=== PATIENT | female | born 1945 | race Caucasian/White ===

== ENCOUNTER → 2018-05-11 | Outpatient (CLI) | payer MEDICARE ==
--- NOTE | 2018-05-11 14:41 | XR ---
EXAMINATION TYPE: XR chest 2V DATE OF EXAM: 05/11/2018 COMPARISON: None INDICATION: Cough TECHNIQUE: Frontal and lateral views of the chest are obtained. FINDINGS: The heart size is normal. The pulmonary vasculature is normal. The lungs are clear. There is hyperinflation some flattening the diaphragms and increased AP diamete r. Some emphysematous change could be considered. IMPRESSION: 1. No acute pulmonary process. 2. Consider emphysematous change.
== END | disposition home or self-care (01) ==
LOC: RADXRYALE 13:19
PROVIDERS: ATTEND Internal Medicine
DX: R05 Cough (principal)
CPT/HCPCS: 71046

== ENCOUNTER → 2018-06-20 | Outpatient (CLI) | payer MEDICARE ==
--- NOTE | 2018-06-20 16:16 | XR ---
EXAMINATION TYPE: XR ribs LT w pa chest xray DATE OF EXAM: 06/20/2018 COMPARISON: Chest x-ray 05/11/2018 HISTORY: Left rib pain TECHNIQUE: Two-view left RIBS supplemented with a frontal chest FINDINGS: The heart size is normal. The pulmonary vasculature is normal. No pneumothorax is evident. No displaced rib fractures are identified. IMPRESSION: 1. Normal left ribs
== END ==
LOC: RADXRYALE 11:54
PROVIDERS: ATTEND Internal Medicine
DX: R07.81 Pleurodynia (principal)

== ENCOUNTER → 2018-06-21 | Outpatient (CLI) | payer MEDICARE ==
--- NOTE | 2018-06-21 10:44 | US ---
EXAMINATION TYPE: US abdomen complete DATE OF EXAM: 06/21/2018 COMPARISON: NONE CLINICAL HISTORY: R10.13 epigastric abdominal pain. Epigastric pain, NPO, no previous surgeries EXAM MEASUREMENTS: Liver Length: 14.2 cm Gallbladder Wall: 0.1 cm CBD: 0.7 cm CHD: 1.5 cm Spleen: 8.4 cm Right Kidney: 9.0 x 4.5 x 4.2 cm Left Kidney: 9.0 x 4.7 x 4.8 cm Pancreas: Appears hyperechoic in appearance Liver: Appears hyperechoic and heterogenous Gallbladder: wnl Evidence for sonographic Goins's sign: neg CBD: wnl range for patient age CHD: dilated Spleen: Not well visualized Right Kidney: wnl, lower pole obscured by overlying bowel gas Left Kidney: wnl Upper IVC: wnl Abd Aorta: No AAA visualized The visualized liver is heterogeneously hyperechoic. Evaluation for focal masses is suboptimal due t o the heterogeneity. The intrahepatic portion of the IVC and visualized abdominal aorta are within n ormal limits. There is no evidence of cholelithiasis. Common bile duct is unremarkable. The visual ized portions of the pancreas are slightly heterogeneous without obvious mass. The spleen Is unremark able. Kidneys are symmetric and free of hydronephrosis. No renal lesions are seen. IMPRESSION: Suboptimal study without suspicious finding seen to account for patient's symptoms.Fatty infiltration of liver suspected.
== END ==
LOC: RADUSWWP 08:39
PROVIDERS: ATTEND Internal Medicine
DX: R10.13 Epigastric pain (principal)
CPT/HCPCS: 76700

== ENCOUNTER → 2018-10-31 | Outpatient (CLI) | payer MEDICARE ==
--- NOTE | 2018-10-31 15:59 | XR ---
EXAMINATION TYPE: XR bone survey complete DATE OF EXAM: 10/31/2018 COMPARISON: Chest 06/20/2018 HISTORY: 72-year-old female with lymphadenopathy TECHNIQUE: 16 views. FINDINGS: Chest: Heart upper limits of normal in size. Mild diffuse interstitial prominence appears chronic. Biapical pleural-parenchymal scarring. No consolidation or pleural effusion. Rounded retrocardiac density coul d represent an underlying hiatal hernia. Cervical spine: No predental space widening. Grade 1 anterolisthesis at C4-C5 secondary to facet and uncovertebral josue int arthropathy. Moderate disc/endplate degenerative change mid to lower cervical spine. No lytic les ions seen. Humeri: No endosteal scalloping or punched-out lytic lesion. Calvarium: A couple small 4 mm rounded lucencies posteriorly and inferiorly may represent prominent venous lakes . Otherwise, no punched out lytic lesions or periostitis seen. Pelvis: Mild degenerative change of both hips. No lytic lesions. SI joints appear intact. Thoracic spine: Gentle levoconvex curvature. 12 rib-bearing thoracic vertebral bodies. All pedicles are visualized. M ildly accentuated midthoracic kyphosis with mild multilevel degenerative disc disease. No vertebral c ompression collapse or malalignment. Lumbar spine: 5 lumbar type vertebral bodies. Osteopenia. Facet arthropathy mid to lower lumbar spine. There is a g rade 1 retrolisthesis at L1-L2. Vertebral body heights are preserved. Femurs: No punched out lytic lesion, endosteal scalloping, or periostitis. IMPRESSION: 1. A couple small 4 mm lucencies posteriorly and inferiorly within the calvarium. Suspect prominent v enous lakes. Follow-up as indicated. 2. No other suspicious lytic lucencies are identified.
== END | disposition home or self-care (01) ==
LOC: RADXRMAIN 11:40
PROVIDERS: ATTEND Internal Medicine Hematology & Oncology
DX: D72.820 Lymphocytosis (symptomatic) (principal); R10.10 Upper abdominal pain, unspecified
CPT/HCPCS: 77075

== ENCOUNTER → 2019-10-25 | Outpatient (CLI) | payer MEDICARE | END | disposition home or self-care (01) | CPT/HCPCS: 94060; 94726; 94729 ==

== ENCOUNTER → 2020-09-11 | Outpatient (CLI) | payer MEDICARE | END | disposition home or self-care (01) | LOC: LABWHC1 08:32 | PROVIDERS: ATTEND Internal Medicine | DX: Z20.822 Contact with and (suspected) exposure to COVID-19 (principal); R05 Cough | CPT/HCPCS: U0003; C9803 ==

== ENCOUNTER → 2020-09-27 | Outpatient (CLI) | payer MEDICARE ==
[2020-09-27 14:39] LABS: Basophils # (A) 0.08 X 10*3/uL (0.00-0.10); Basophils % (A) 0.7 %; Eosinophils # (A) 0.22 X 10*3/uL (0.04-0.35); Eosinophils % (A) 1.9 %; HCT 36.4 % (37.2-46.3); HGB 11.4 g/dL (12.0-15.0); Lymphocytes # (A) 2.99 X 10*3/uL (0.90-5.00); Lymphocytes % (A) 25.3 %; MCHC 31.3 g/dL (32.0-37.0); MCV 92.6 fL (80.0-97.0); Mean Platelet Volume 9.7 fL (9.5-12.2); Monocytes # (A) 1.14 X 10*3/uL (0.20-1.00); Monocytes % (A) 9.7 %; Neutrophils # (A) 7.25 X 10*3/uL (1.80-7.70); Neutrophils % (A) 61.4 %; Platelet Count 342 X 10*3/uL (140-440); RBC 3.93 X 10*6/uL (4.10-5.20)
[2020-09-28 07:34] LABS: African American GFR (CKD) 98.9 (60.0-200.0); Albumin 4.4 g/dL (3.80-4.90); Albumin/Globulin Ratio 2.2 (1.60-3.17); Anion Gap 12.6 mmol/L (4.00-12.00); BUN/Creat Ratio 25.71 Ratio (12.00-20.00); Calcium 9.8 mg/dL (8.7-10.3); Carbon Dioxide 22.4 mmol/L (21.6-31.8); Non-African American GFR(CKD) 85.4 (60.0-200.0); Potassium 4.4 mmol/L (3.5-5.5); Total Bilirubin 0.8 mg/dL (0.3-1.2); Total Protein 6.4 g/dL (6.2-8.2)
[2020-09-28 07:35] LABS: Chol/HDL Ratio 2.95; LDL Cholesterol,Calculated 88.2 mg/dL (0.0-131.0); VLDL Calculation 28.8 mg/dL (5.00-40.00)
== END ==
LOC: LABWHC1 08:51
PROVIDERS: ATTEND Internal Medicine
DX: Z00.01 Encounter for general adult medical examination with abnormal findings (principal); I10 Essential (primary) hypertension; E78.00 Pure hypercholesterolemia, unspecified
CPT/HCPCS: 36415; 80053; 80061; 85025

== ENCOUNTER 2023-07-28 11:06 | Day surgery (SDC) | payer MEDICARE ==
[~2023-07-28 11:06] MED LIST: LACTATED RINGERS 1,000 ML IV SCH
[2023-07-28] MEDS: LACTATED RINGERS 1,000 ML IV SCH (12:22)
[2023-07-28] MEDS ORDERED: MIDAZOLAM 2 MG/2 ML VIAL ONE (12:28)
[2023-07-28] MEDS ORDERED: fentaNYL (PF) 50 MCG/ML 2 ML AMP ONE (12:28)
[2023-07-28] MEDS ORDERED: LIDOCAINE 1% INJ 10MG/ML (20 ML MDV) ONE (12:28)
[2023-07-28] MEDS ORDERED: PROPOFOL 10 MG/ML 20 ML VIAL IV ONE (12:28)
[2023-07-28] MEDS: ATROPINE SULFATE 0.4 MG/ML 1 ML VIAL IM ONE (12:28)
[2023-07-28] MEDS ORDERED: KETAMINE HCL IN 0.9 % NACL 50 MG/5 ML SYRINGE ONE (12:28)
[2023-07-28] MEDS: LIDOCAINE 2% INJ 20 MG/ML INTRATRACH ONE (12:39)
[2023-07-28 13:14] VITALS: TEMP 97
[2023-07-28] MEDS: METOPROLOL TARTRATE 5 MG/5 ML VIAL IVP ONE (13:26)
[2023-07-28 13:52] VITALS: RESP 18
[2023-07-28 14:32] VITALS: BP 159/73; PULSE 79
--- NOTE | 2023-07-28 19:44 | PCN ---
PROCEDURE NOTE PROCEDURE: Bronchoscopy, airway examination, therapeutic lavage, bronchoalveolar lavage. PREOPERATIVE DIAGNOSES: Severe chronic obstructive pulmonary disease, chronic bronchitis, chronic cough, and retained secretions. POSTOPERATIVE DIAGNOSES: Severe chronic obstructive pulmonary disease, chronic bronchitis, chronic cough, and retained secretions. LINER ASSEMBLER: Dr. Norris. FIRST DYNAMOTOR REPAIRER: Dr. Stacie Mauro. There was informed consent and universal timeout. ANESTHESIA PROVIDED: General anesthesia. The patient's procedure took place in room #1 [facility]. DESCRIPTION OF PROCEDURE: After the patient was adequately sedated and being fully monitored, the bronchoscope was inserted through the right nostril. It passed through the right nasopharynx into the oropharynx. The hypopharynx was identified. The hypopharyngeal structures including anterior commissure, true cords, false cords, arytenoids, piriform sinuses right and left, vallecula, epiglottis, all appeared normal. The glottic opening was topicalized. The bronchoscope was pushed through the glottic opening into the trachea. The trachea appeared generally normal. There was no mass or tumor. There were some secretions. They were foamy. The tracheal ben was sharp. The right and left mainstem were topicalized. We did a thorough evaluation of both lungs, including the right upper lobe and its 3 segments, the right middle lobe and its 2 segments, the right lower lobe and its 5 segments, left upper lobe proper and its 2 segments, lingula and its 2 segments, and left lower lobe and its 4 segments. There was mild to moderate bronchitis throughout. There were secretions noted throughout. They were suctioned with the aid of saline lavage. There was no dominant mass or tumor. There was some mild mucosal friability. The bronchoscope was then wedged into the right middle lobe. We did a formal BAL. There was no immediate complication. The patient tolerated the procedure well. The patient will be taken over to recovery area. I was able to speak to the patient's . The patient will follow with me in the office. MMODL / IJN: [id number] /
[2023-07-28 21:13] LABS: Appearance,BF Cloudy (Clear); RBC, Body Fluid 5350 /UL (0-2000)
[2023-07-29 09:31] LABS: Nucleated Cells, Body Fluid 65 /UL
== END 2023-07-28 14:23 | disposition home or self-care (01) ==
LOC: ORWHC2ENDO 11:06
PROVIDERS: ATTEND Internal Medicine Critical Care Medicine
DX: J44.1 Chronic obstructive pulmonary disease with (acute) exacerbation (principal); J20.9 Acute bronchitis, unspecified
CPT/HCPCS: 87798 ×3; 87496; 87498; 87529; 88108; 88305; 89050; 87502; 87634; 87070; 87205; 87116; 87102; 87206; 87635; 31624; J2001 ×2; J2250; J0461; J3010; J2704

== ENCOUNTER 2023-09-16 16:54 | Inpatient (IN) | payer MEDICARE ==
[2023-09-16 17:54] LABS: Appearance,Urine Clear (Clear); Bilirubin,Urine Negative (Negative); Blood,Urine Negative (Negative); Color,Urine Colorless; Glucose,Urine (UA) Negative (Negative); Ketones,Urine 1+ (Negative); Leukocyte Esterase,Urine Negative (Negative); Nitrite,Urine Negative (Negative); PH, Urine 5.5 (5.0-8.0); Protein,Urine Negative (Negative); Specific Gravity,Urine 1.013 (1.001-1.035); Urobilinogen,Urine <2.0 mg/dL (<2.0)
[2023-09-16 18:02] LABS: ALT 12 U/L (4-34); AST 18 U/L (14-36); African American GFR (CKD) >90 (>60 ml/min/1.73 sqM); Albumin 3.9 g/dL (3.5-5.0); Alkaline Phosphatase 91 U/L (38-126); Anion Gap 8 mmol/L; Blood Urea Nitrogen 13 mg/dL (7-17); Carbon Dioxide 20 mmol/L (22-30); Chloride 109 mmol/L (98-107); Glucose 126 mg/dL (74-99); Magnesium 1.6 mg/dL (1.6-2.3); Non-African American GFR(CKD) >90 (>60 ml/min/1.73 sqM); Phosphorus 3.1 mg/dL (2.5-4.5); Potassium 4.2 mmol/L (3.5-5.1); Sodium 137 mmol/L (137-145); Total Bilirubin 0.7 mg/dL (0.2-1.3); Total Protein 6.5 g/dL (6.3-8.2)
[2023-09-16 18:03] LABS: Basophils # (A) 0.1 k/uL (0-0.2); Basophils % (A) 0 %; Eosinophils % (A) 0 %; HCT 35.7 % (34.0-46.0); HGB 11.9 gm/dL (11.4-16.0); Lymphocytes # (A) 1.5 k/uL (1.0-4.8); Lymphocytes % (A) 10 %; MCH 29.1 pg (25.0-35.0); MCHC 33.2 g/dL (31.0-37.0); MCV 87.5 fL (80.0-100.0); Mean Platelet Volume 7.5; Monocytes # (A) 0.6 k/uL (0-1.0); Monocytes % (A) 4 %; Neutrophils # (A) 13.7 k/uL (1.3-7.7); Neutrophils % (A) 85 %; Partial Thromboplastin Time 28.3 sec (22.0-30.0); Platelet Count 368 k/uL (150-450); Prothrombin Time 10.9 sec (10.0-12.5); RBC 4.07 m/uL (3.80-5.40); RDW 13.8 % (11.5-15.5); WBC 16.1 k/uL (3.8-10.6)
--- NOTE | 2023-09-16 18:04 | ED ---
Fever HPI - General Chief Complaint: Altered Mental Status Stated Complaint: Weakness Time Seen by Provider: 09/16/23 17:01 Source: patient, RN notes reviewed, old records reviewed Mode of arrival: EMS Limitations: no limitations, altered mental status - History of Present Illness Initial Comments: This is a 77-year-old female to the ER for evaluation. Patient [place] for evaluation of cough congestion fever concern for pneumonia. Patient has been having increasing weakness and was found to be hypoxic with a fever tonight. Family also noticed patient to have increasing or worsening altered mental status MD Complaint: fever, malaise, weakness, other (Mental status) -: days(s) Temperature Source: subjective Context: multiple patients with similar symptoms Associated Symptoms: denies other symptoms Treatments Prior to Arrival: none - Related Data Home Medications Medication Instructions Recorded Confirmed Aspirin 81 mg PO DAILY 07/23/23 09/16/23 Budesonide/Formoterol Fumarate 2 puff INHALATION RT-BID 07/23/23 09/16/23 [Budesonide-Formoterol 160-4.5] Ferrous Sulfate [Feosol] 325 mg PO DAILY 07/23/23 09/16/23 HYDROcodone/APAP 5-325MG [[place] 1 tab PO TID PRN 07/23/23 09/16/23 5-325] Losartan [Cozaar] 100 mg PO DAILY 07/23/23 09/16/23 amLODIPine [Norvasc] 2.5 mg PO DAILY 07/23/23 09/16/23 Metoprolol Tartrate [Lopressor] 25 mg PO DAILY 09/16/23 09/16/23 Omeprazole 20 mg PO DAILY 09/16/23 09/16/23 Allergies Allergy/AdvReac Type Severity Reaction Status Date / Time ciprofloxacin [From Cipro] Allergy Swelling Verified 09/16/23 17:55 levofloxacin Allergy Swelling Verified 09/16/23 17:55 Penicillins Allergy swelling Verified 09/16/23 17:55 of throat Review of Systems ROS Statement: Those systems with pertinent positive or pertinent negative responses have been documented in the HPI. ROS Other: All systems not noted in ROS Statement are negative. Past Medical History Past Medical History: COPD, Hypertension Additional Past Medical History / Comment(s): emphysema, hx anemia, increased SOB, wears 2 liters 02 when needed. increased mucous History of Any Multi-Drug Resistant Organisms: None Reported Past Surgical History: Heart Catheterization With Stent Additional Past Surgical History / Comment(s): colonoscopy Past Anesthesia/Blood Transfusion Reactions: No Reported Reaction Date of Last Stent Placement:: 2005 Past Psychological History: No Psychological Hx Reported Smoking Status: Former smoker Past Alcohol Use History: None Reported Past Drug Use History: None Reported - Past Family History Father Family Medical History: Cancer Mother Family Medical History: Hypertension General Exam Limitations: altered mental status General appearance: anxious, in distress Head exam: Present: atraumatic, normocephalic, normal inspection Eye exam: Present: normal appearance, PERRL, EOMI. Absent: scleral icterus, conjunctival injection, periorbital swelling ENT exam: Present: normal exam, mucous membranes moist Neck exam: Present: normal inspection. Absent: tenderness, meningismus, lymphadenopathy Respiratory exam: Present: normal lung sounds bilaterally. Absent: respiratory distress, wheezes, rales, rhonchi, stridor Cardiovascular Exam: Present: regular rate, normal rhythm, normal heart sounds. Absent: systolic murmur, diastolic murmur, rubs, gallop, clicks GI/Abdominal exam: Present: soft, normal bowel sounds. Absent: distended, tenderness, guarding, rebound, rigid Extremities exam: Present: normal inspection, full ROM, normal capillary refill. Absent: tenderness, pedal edema, joint swelling, calf tenderness Back exam: Present: normal inspection Neurological exam: Present: alert, oriented X3, CN II-XII intact Psychiatric exam: Present: normal affect, normal mood Skin exam: Present: warm, dry, intact, normal color. Absent: rash Course Vital Signs 09/16/23 09/16/23 09/16/23 17:07 17:50 19:11 Temperature 99.8 F H 99.6 F 99.1 F Pulse Rate 107 H 105 H 96 Pulse Rate [ Field Scout ] Respiratory 20 16 16 Rate Blood Pressure 152/72 142/58 Blood Pressure [Right Arm] O2 Sat by Pulse 87 L 97 96 Oximetry 09/16/23 09/17/23 09/17/23 21:00 06:00 07:45 Temperature 98.8 F 98.9 F 99.0 F Pulse Rate 85 80 Pulse Rate [ Field Scout ] Respiratory 20 17 Rate Blood Pressure 147/65 152/67 Blood Pressure [Right Arm] O2 Sat by Pulse 95 99 98 Oximetry 09/17/23 09/17/23 09/17/23 08:24 09:02 10:20 Temperature 99.0 F Pulse Rate 77 83 Pulse Rate [ Field Scout ] Respiratory 18 17 Rate Blood Pressure 140/60 123/45 Blood Pressure [Right Arm] O2 Sat by Pulse 98 99 98 Oximetry 09/17/23 09/17/23 09/17/23 12:25 13:04 17:44 Temperature 98.3 F Pulse Rate 96 Pulse Rate [ 89 80 Field Scout ] Respiratory 14 18 18 Rate Blood Pressure 149/73 Blood Pressure 124/57 124/64 [Right Arm] O2 Sat by Pulse 95 96 96 Oximetry 09/17/23 09/17/23 18:29 19:52 Temperature 98.9 F 97.8 F Pulse Rate 80 Pulse Rate [ Field Scout ] Respiratory 18 Rate Blood Pressure 127/51 Blood Pressure [Right Arm] O2 Sat by Pulse 93 L Oximetry - Reevaluation(s) Reevaluation #1: 09/16/23 21:34 Medical records reviewed Reevaluation #2: 09/16/23 21:34 Patient symptoms improving Reevaluation #3: 09/16/23 21:34 Patient informed of results questions answered Reevaluation #4: Was pt. sent in by a medical professional or institution (, PA, SERVICE ENGINE REPAIRER, urgent care, hospital, or correction...) When possible be specific @ -no Did you speak to anyone other than the patient for history (EMS, parent, family, police, friend...)? What history was obtained from this source @ -no Did you review nursing and triage notes (agree or disagree)? Why? @ -agree Are old charts reviewed (outside hosp., previous admission, EMS record, old EKG, old radiological studies, urgent care reports/EKG's, correction records)? Report findings @ -yes Differential Diagnosis (chest pain, altered mental status, abdominal pain women, abdominal pain men, vaginal bleeding, weakness, fever, dyspnea, syncope, headache, dizziness, GI bleed, back pain, seizure, CVA, palpatations, mental health, musculoskeletal)? @ -prior EKG interpreted by me (3pts min.). @ -yes X-rays interpreted by me (1pt min.). @ -yes positive for pneumonia CT interpreted by me (1pt min.). @ -no U/S interpreted by me (1pt. min.). @ -no What testing was considered but not performed or refused? (CT, X-rays, U/S, labs)? Why? @ -none What meds were considered but not given or refused? Why? @ -none Did you discuss the management of the patient with other professionals (professionals i.e. , PA, SERVICE ENGINE REPAIRER, lab, RT, psych nurse, oncology social worker, pigskin trimmer, teacher, information technology officer, caseworker)? Give summary @ -no Was smoking cessation discussed for >3mins.? @ -no Was critical care preformed (if so, how long)? @ -[id number] Were there social determinants of health that impacted care today? How? (Homelessness, low income, unemployed, alcoholism, drug addiction, transportation, low edu. Level, literacy, decrease access to med. care, fpc, rehab)? @ -none Was there de-escalation of care discussed even if they declined (Discuss DNR or withdrawal of care, Hospice)? DNR status @ -no What co-morbidities impacted this encounter? (DM, HTN, Smoking, COPD, CAD, Cancer, CVA, ARF, Chemo, Hep., AIDS, mental health diagnosis, sleep apnea, morbid obesity)? @ -none Was patient admitted / discharged? Hospital course, mention meds given and route, prescriptions, significant lab abnormalities, going to OR and other pertinent info. @ - 77 female to ER for evaluation of fever with pneumonia. Patient will be a dmitted for IV antibiotics fever control Admitted Undiagnosed new problem with uncertain prognosis? @ -no Drug Therapy requiring intensive monitoring for toxicity (Heparin, Nitro, Insulin, Cardizem)? @ -no Were any procedures done? @ -no Diagnosis/symptom? @ -Pneumonia fever hypoxia Acute, or Chronic, or Acute on Chronic? @ -Acute Uncomplicated (without systemic symptoms) or Complicated (systemic symptoms)? @ -Complicated Side effects of treatment? @ -no Exacerbation, Progression, or Severe Exacerbation? @ -exacerbation Poses a threat to life or bodily function? How? (Chest pain, USA, NM, pneumonia, PE, COPD, DKA, ARF, appy, cholecystitis, CVA, Diverticulitis, Homicidal, Suicidal, threat to staff... and all critical care pts) @ -yes with extremes of age 0509/18/23 23:03 Reevaluation #5: Differential Fever: Pneumonia, viral URI, endocarditis, myocarditis, pericarditis, otitis, sinusitis, peritonsillar Abscess, retropharyngeal Abscess, epiglottitis, per itonitis, appendicitis, Grace cystitis, diverticulitis, hepatitis, colitis, UTI, PID, TOA, pyelonephritis, prostatitis, epididymitis, meningitis, encephalitis, pulmonary embolism, CVA, thyroid storm, pancreatitis, adrenal crisis, cavernous sinus thrombosis, this is not meant to be an all-inclusive list. Differential Dyspnea: Coronary syndrome, arrhythmia, tamponade, asthma, COPD, pulmonary embolism, pneumonia, pneumothorax, pulmonary effusion, anaphylaxis, diabetic ketoacidosis, flailed chest, pulmonary contusion, diaphragmatic rupture, anemia, neuromuscular, this is not meant to be an all-inclusive list. Medical Decision Making - Medical Decision Making 77 female to ER for evaluation of fever with pneumonia. Patient will be admitt ed for IV antibiotics fever control - Lab Data Result diagrams: 09/18/23 12:57 09/18/23 12:57 Lab Results 09/16/23 09/16/23 09/16/23 Range/Units 17:20 17:40 17:40 WBC 16.1 H (3.8-10.6) k/uL RBC 4.07 (3.80-5.40) m/uL Hgb 11.9 (11.4-16.0) gm/dL Hct 35.7 (34.0-46.0) % MCV 87.5 (80.0-100.0) fL MCH 29.1 (25.0-35.0) pg MCHC 33.2 (31.0-37.0) g/dL RDW 13.8 (11.5-15.5) % Plt Count 368 (150-450) k/uL MPV 7.5 Neutrophils % 85 % Lymphocytes % 10 % Monocytes % 4 % Eosinophils % 0 % Basophils % 0 % Neutrophils # 13.7 H (1.3-7.7) k/uL Lymphocytes # 1.5 (1.0-4.8) k/uL Monocytes # 0.6 (0-1.0) k/uL Eosinophils # 0.0 (0-0.7) k/uL Basophils # 0.1 (0-0.2) k/uL PT 10.9 (10.0-12.5) sec INR 1.0 (<1.2) APTT 28.3 (22.0-30.0) sec Sodium (137-145) mmol/L Potassium (3.5-5.1) mmol/L Chloride (98-107) mmol/L Carbon Dioxide (22-30) mmol/L Anion Gap mmol/L BUN (7-17) mg/dL Creatinine (0.52-1.04) mg/dL Est GFR (CKD-EPI)AfAm (>60 ml/min/1.73 sqM) Est GFR (CKD-EPI)NonAf (>60 ml/min/1.73 sqM) Glucose (74-99) mg/dL Plasma Lactic Acid Amor (0.7-2.0) mmol/L Calcium (8.4-10.2) mg/dL Phosphorus (2.5-4.5) mg/dL Magnesium (1.6-2.3) mg/dL Total Bilirubin (0.2-1.3) mg/dL AST (14-36) U/L ALT (4-34) U/L Alkaline Phosphatase (38-126) U/L Troponin I (0.000-0.034) ng/mL NT-Pro-B Natriuret Pep pg/mL Total Protein (6.3-8.2) g/dL Albumin (3.5-5.0) g/dL Procalcitonin 0.10 H (0.02-0.09) ng/mL Urine Color Urine Appearance (Clear) Urine pH (5.0-8.0) Ur Specific [place] (1.001-1.035) Urine Protein (Negative) Urine Glucose (UA) (Negative) Urine Ketones (Negative) Urine Blood (Negative) Urine Nitrite (Negative) Urine Bilirubin (Negative) Urine Urobilinogen (<2.0) mg/dL Ur Leukocyte Esterase (Negative) Influenza Type A (PCR) (Not Detectd) Influenza Type B (PCR) (Not Detectd) Urine Legionella Ag (Negative) RSV (PCR) (Not Detectd) SARS-CoV-2 (PCR) (Not Detectd) 09/16/23 09/16/23 09/16/23 Range/Units 17:40 17:40 17:40 WBC (3.8-10.6) k/uL RBC (3.80-5.40) m/uL Hgb (11.4-16.0) gm/dL Hct (34.0-46.0) % MCV (80.0-100.0) fL MCH (25.0-35.0) pg MCHC (31.0-37.0) g/dL RDW (11.5-15.5) % Plt Count (150-450) k/uL MPV Neutrophils % % Lymphocytes % % Monocytes % % Eosinophils % % Basophils % % Neutrophils # (1.3-7.7) k/uL Lymphocytes # (1.0-4.8) k/uL Monocytes # (0-1.0) k/uL Eosinophils # (0-0.7) k/uL Basophils # (0-0.2) k/uL PT (10.0-12.5) sec INR (<1.2) APTT (22.0-30.0) sec Sodium 137 (137-145) mmol/L Potassium 4.2 (3.5-5.1) mmol/L Chloride 109 H (98-107) mmol/L Carbon Dioxide 20 L (22-30) mmol/L Anion Gap 8 mmol/L BUN 13 (7-17) mg/dL Creatinine 0.54 (0.52-1.04) mg/dL Est GFR (CKD-EPI)AfAm >90 (>60 ml/min/1.73 sqM) Est GFR (CKD-EPI)NonAf >90 (>60 ml/min/1.73 sqM) Glucose 126 H (74-99) mg/dL Plasma Lactic Acid Amor 0.8 (0.7-2.0) mmol/L Calcium 9.0 (8.4-10.2) mg/dL Phosphorus 3.1 (2.5-4.5) mg/dL Magnesium 1.6 (1.6-2.3) mg/dL Total Bilirubin 0.7 (0.2-1.3) mg/dL AST 18 (14-36) U/L ALT 12 (4-34) U/L Alkaline Phosphatase 91 (38-126) U/L Troponin I (0.000-0.034) ng/mL NT-Pro-B Natriuret Pep 567 pg/mL Total Protein 6.5 (6.3-8.2) g/dL Albumin 3.9 (3.5-5.0) g/dL Procalcitonin (0.02-0.09) ng/mL Urine Color Colorless Urine Appearance Clear (Clear) Urine pH 5.5 (5.0-8.0) Ur Specific [place] 1.013 (1.001-1.035) Urine Protein Negative (Negative) Urine Glucose (UA) Negative (Negative) Urine Ketones 1+ H (Negative) Urine Blood Negative (Negative) Urine Nitrite Negative (Negative) Urine Bilirubin Negative (Negative) Urine Urobilinogen <2.0 (<2.0) mg/dL Ur Leukocyte Esterase Negative (Negative) Influenza Type A (PCR) (Not Detectd) Influenza Type B (PCR) (Not Detectd) Urine Legionella Ag (Negative) RSV (PCR) (Not Detectd) SARS-CoV-2 (PCR) (Not Detectd) 09/16/23 09/16/23 09/16/23 Range/Units 17:40 17:40 18:36 WBC (3.8-10.6) k/uL RBC (3.80-5.40) m/uL Hgb (11.4-16.0) gm/dL Hct (34.0-46.0) % MCV (80.0-100.0) fL MCH (25.0-35.0) pg MCHC (31.0-37.0) g/dL RDW (11.5-15.5) % Plt Count (150-450) k/uL MPV Neutrophils % % Lymphocytes % % Monocytes % % Eosinophils % % Basophils % % Neutrophils # (1.3-7.7) k/uL Lymphocytes # (1.0-4.8) k/uL Monocytes # (0-1.0) k/uL Eosinophils # (0-0.7) k/uL Basophils # (0-0.2) k/uL PT (10.0-12.5) sec INR (<1.2) APTT (22.0-30.0) sec Sodium (137-145) mmol/L Potassium (3.5-5.1) mmol/L Chloride (98-107) mmol/L Carbon Dioxide (22-30) mmol/L Anion Gap mmol/L BUN (7-17) mg/dL Creatinine (0.52-1.04) mg/dL Est GFR (CKD-EPI)AfAm (>60 ml/min/1.73 sqM) Est GFR (CKD-EPI)NonAf (>60 ml/min/1.73 sqM) Glucose (74-99) mg/dL Plasma Lactic Acid Amor (0.7-2.0) mmol/L Calcium (8.4-10.2) mg/dL Phosphorus (2.5-4.5) mg/dL Magnesium (1.6-2.3) mg/dL Total Bilirubin (0.2-1.3) mg/dL AST (14-36) U/L ALT (4-34) U/L Alkaline Phosphatase (38-126) U/L Troponin I <0.012 (0.000-0.034) ng/mL NT-Pro-B Natriuret Pep pg/mL Total Protein (6.3-8.2) g/dL Albumin (3.5-5.0) g/dL Procalcitonin (0.02-0.09) ng/mL Urine Color Urine Appearance (Clear) Urine pH (5.0-8.0) Ur Specific [place] (1.001-1.035) Urine Protein (Negative) Urine Glucose (UA) (Negative) Urine Ketones (Negative) Urine Blood (Negative) Urine Nitrite (Negative) Urine Bilirubin (Negative) Urine Urobilinogen (<2.0) mg/dL Ur Leukocyte Esterase (Negative) Influenza Type A (PCR) Not Detected (Not Detectd) Influenza Type B (PCR) Not Detected (Not Detectd) Urine Legionella Ag Negative (Negative) RSV (PCR) Not Detected (Not Detectd) SARS-CoV-2 (PCR) Not Detected (Not Detectd) - EKG Data -: EKG Interpreted by Me (EKG is sinus tachycardia 104 WA 160 QRS 90 QTc 406) - Radiology Data Radiology results: report reviewed (Chest x-ray is positive for pneumonia), image reviewed Critical Care Time Critical Care Time: Yes Total Critical Care Time: 31 Disposition Clinical Impression: Altered mental status, Fever, Hypoxia, Pneumonia allergic, Pneumonia Disposition: ADMITTED IP TO THIS HOSP Condition: Fair Is patient prescribed a controlled substance at d/c from ED?: No Time of Disposition: 20:45
[2023-09-16 18:10] LABS: NT-Pro-B-Type Natriuretic Pept 567 pg/mL
[2023-09-16] MEDS: SODIUM CHLORIDE 0.9% 1,000 ML IV STA (18:16)
--- NOTE | 2023-09-16 19:02 | XR ---
EXAMINATION TYPE: XR chest 2V DATE OF EXAM: 09/16/2023 6:44 PM CLINICAL INDICATION:Female, 77 years old with history of cough; [facility] COMPARISON: Chest radiographs from 07/21/2023 TECHNIQUE: XR chest 2V Frontal and lateral views of the chest. FINDINGS: Lungs/Pleura: Hazy bibasilar airspace opacities, slightly progressed from the prior study. No pleural effusion or pneumothorax. Pulmonary vascularity: Unremarkable. Heart/mediastinum: Cardiomediastinal silhouette is unremarkable. Atherosclerotic calcifications are seen in the aorta. Musculoskeletal: No acute osseous pathology. IMPRESSION: Bibasilar airspace disease, may represent developing infectious/inflammatory process.
[2023-09-16] MEDS ORDERED: IPRATROPIUM-ALBUTEROL 3 ML NEB INHALATION PRN ×2 (20:40)
[2023-09-16] MEDS ORDERED: PNEUMONIA PROTOCOL UTILIZED 1 EACH MISC PO PRN (20:40)
[2023-09-16] MEDS: AZITHROMYCIN 500 MG in SODIUM CHLORIDE 0.9% 250 ML IVPB STA ×2 (21:56→22:40)
[2023-09-16] MEDS: SODIUM CHLORIDE 0.9% 1,000 ML IV SCH (22:06)
--- NOTE | 2023-09-17 02:48 | P.CNPUL ---
History of Present Illness Consult date: 09/17/23 Requesting physician: Marquise Jewell Reason for consult: COPD, pneumonia Chief complaint: Shortness of breath, weakness, lethargy History of present illness: Patient is a 77-year-old white female with past medical history significant for severe chronic obstructive pulmonary disease, chronic supplemental oxygen on 2 L nasal cannula, hypertension, and former tobacco dependence. Her primary care provider is Dr. Tripp. Patient does follow in the pulmonary office with Dr. Norris. She has history of severe COPD with an FEV1 45% of predicted, most recent PFT shows an improvement in her FEV1 59%. She no longer smokes cigarettes, but has a significant smoking history. In June, she was having issues with her COPD in exacerbation. Recently had a bronchoscopy with BAL done on 07/28/2023. Cultures did not show any bacteria growing. Only isolated Magdalena albicans and glabrata. PCR positive for CMV. States that she was doing well following her bronchoscopy. Patient brought in by EMS yesterday evening. Over the last several days she has noted to be increasingly lethargic and co nfused by her family. She is currently alert and oriented and answering my questions. She admits to being fatigued and sleeping a lot. She has had a productive cough with green/yellow sputum. Denies hemoptysis. She has been having low-grade fevers at home. Highest recorded temperature on arrival to the emergency room was 99.8 F. She denies any gastrointestinal symptoms such as nausea, vomiting, or diarrhea. No abdominal pain. No known sick contacts or travel. She denies any chest pain, lower extremity swelling, lightheadedness/syncope, heart palpitations. EKG on arrival shows sinus tachycardia without any obvious acute ischemic changes. Chest x-ray shows mild hazy bibasilar airspace opacities, could represent developing infectious/inflammatory process. Was covered on empiric antibiotics in the emergency room. CBC on arrival shows some leukocytosis with a WBC count of 16.1, otherwise unremarkable. BMP unremarkable. Normal saline infusing at 100 MLS per hour. Troponin less than 0.012. NT proBNP 567. Urinalysis not remarkable for UTI. Negative for influenza, RSV, COVID. Appears nontoxic. She is currently on 2 L/min nasal cannula, in no acute distress. She is chronically on this flow rate. Vital signs are stable. Review of Systems REVIEW OF SYSTEMS: CONSTITUTIONAL: Denies any recent significant weight loss or weight gain. Admits generalized malaise and fatigue. Also intermittent low-grade fevers. EYES: Denies change in vision. EARS, NOSE, MOUTH, THROAT: Denies headaches, denies sore throat. CARDIOVASCULAR: Denies chest pain, palpitations or syncopal episodes. RESPIRATORY: See HPI. GASTROINTESTINAL: Denies abdominal pain, nausea and vomiting, or diarrhea. Admits reduced appetite. GENITOURINARY: Denies hematuria, denies infections. MUSKULOSKELETAL: Admits generalized muscle aches INTEGUMENTARY: Denies rash, denies eczema. NEUROLOGICAL: Denies recent memory loss, no recent seizure activity. PSYCHIATRIC: Denies anxiety, denies depression. HEMATOLOGIC/LYMPHATIC: Denies anemia, denies enlarged lymph node Past Medical History Past Medical History: COPD, Hypertension Additional Past Medical History / Comment(s): emphysema, hx anemia, increased SOB, wears 2 liters 02 when needed. increased mucous History of Any Multi-Drug Resistant Organisms: None Reported Past Surgical History: Heart Catheterization With Stent Additional Past Surgical History / Comment(s): colonoscopy Past Anesthesia/Blood Transfusion Reactions: No Reported Reaction Date of Last Stent Placement:: 2005 Past Psychological History: No Psychological Hx Reported Smoking Status: Former smoker Past Alcohol Use History: None Reported Past Drug Use History: None Reported - Past Family History Father Family Medical History: Cancer Mother Family Medical History: Hypertension Medications and Allergies Home Medications Medication Instructions Recorded Confirmed Type Aspirin 81 mg PO DAILY 07/23/23 09/16/23 History Budesonide/Formoterol Fumarate 2 puff INHALATION RT-BID 07/23/23 09/16/23 History [Budesonide-Formoterol 160-4.5] Ferrous Sulfate [Feosol] 325 mg PO DAILY 07/23/23 09/16/23 History HYDROcodone/APAP 5-325MG [[place] 1 tab PO TID PRN 07/23/23 09/16/23 History 5-325] Losartan [Cozaar] 100 mg PO DAILY 07/23/23 09/16/23 History amLODIPine [Norvasc] 2.5 mg PO DAILY 07/23/23 09/16/23 History Metoprolol Tartrate [Lopressor] 25 mg PO DAILY 09/16/23 09/16/23 History Omeprazole 20 mg PO DAILY 09/16/23 09/16/23 History Allergies Allergy/AdvReac Type Severity Reaction Status Date / Time ciprofloxacin [From Cipro] Allergy Swelling Verified 09/16/23 17:55 levofloxacin Allergy Swelling Verified 09/16/23 17:55 Penicillins Allergy swelling Verified 09/16/23 17:55 of throat Physical Exam Vitals: Vital Signs Temp Pulse Resp BP Pulse Ox 09/16/23 21:00 98.8 F 95 09/16/23 19:11 99.1 F 96 16 142/58 96 09/16/23 17:50 99.6 F 105 H 16 97 09/16/23 17:07 99.8 F H 107 H 20 152/72 87 L Intake and Output 09/16/23 09/16/23 09/17/23 14:59 22:59 06:59 Other: Weight 72.575 kg GENERAL EXAM: Alert, 77-year-old white female, on 2 L/min nasal cannula. Comfortable in no apparent distress. [facility] HEAD: Normocephalic and atraumatic EYES: Normal reaction of pupils, equal size. NOSE: Clear with pink turbinates. THROAT: No erythema or exudates. NECK: No masses, no JVD. CHEST: No chest wall deformity. LUNGS: Equal air entry with no crackles, wheeze, rhonchi or dullness. On 2 L/ min nasal cannula. No conversational dyspnea or accessory muscle use while at rest CVS: S1 and S2 normal with no audible murmur, regular rhythm. No extra heart sounds ABDOMEN: No hepatosplenomegaly, active bowel sounds, no guarding or rigidity. SPINE: No scoliosis or deformity SKIN: No rashes. Generalized pallor. CENTRAL NERVOUS SYSTEM: No focal deficits, tone is normal in all 4 extremities. EXTREMITIES: There is no peripheral edema, clubbing, or cyanosis. Peripheral pulses are intact. Results - Laboratory Findings CBC and BMP: 09/16/23 17:40 09/16/23 17:40 PT/INR, D-dimer PT 10.9 sec (10.0-12.5) 09/16/23 17:40 INR 1.0 (<1.2) 09/16/23 17:40 Abnormal lab findings: Abnormal Labs 09/16/23 09/16/23 09/16/23 17:40 17:40 17:40 WBC 16.1 H Neutrophils # 13.7 H Chloride 109 H Carbon Dioxide 20 L Glucose 126 H Urine Ketones 1+ H - Diagnostic Findings Chest x-ray: image reviewed Assessment and Plan Assessment: Suspect acute COPD exacerbation, possible developing bibasilar pneumonia, community-acquired. Chest x-ray shows mild hazy bibasilar opacities, could represent developing infectious/inflammatory process. Negative for influenza, RSV, COVID. Acute on chronic dyspnea, secondary to above Acute febrile illness Acute leukocytosis History of severe chronic obstructive pulmonary disease Chronic hypoxemic respiratory failure, secondary to above History of recent bronchoscopy with BAL done 07/28/2023, BAL cultures did not show any bacteria growing. Only isolated Magdalena albicans and glabrata. PCR positive for CMV. She was given fluconazole to be completed outpatient. States that she was doing well following her bronchoscopy. Hypertension History of former tobacco dependence Plan: Patient's medications, labs, chest x-ray reviewed Patient being admitted with IV antibiotics Follow-up chest x-ray in the morning Currently on chronic 2 L/min nasal cannula Start patient on a combination of bronchodilators, Symbicort Hailer, and IV Solu-Medrol 4Plex negative for influenza, RSV, COVID Obtain sputum culture if possible. Blood cultures pending. Procalcitonin pending. No signs of CO2 narcosis. Will continue to follow I have personally seen and examined the patient, performed the documentation and the assessment and plan as written. Number of minutes spent on the visit:20 This is a joint evaluation that was done along with the nurse practitioner. The patient is seen and evaluated. The patient is currently being admitted for an acute Exacerbation. Reviewed the chest x-ray from the time of admission and the follow-up chest x-ray that was done today. Findings are essentially chronic co nsistent with COPD. No airspace disease or consolidations evident at this point in time. There may be a small hiatal hernia. The patient's white cell count is 16, electrolytes are stable and the patient serum bicarb is at 20. LFTs are normal. Procalcitonin level is at 0.1. The viral screen was negative. Legionella urine antigen was negative. The patient is on DuoNeb nebulized treatments [id number], Symbicort, IV Solu-Medrol and rest of the home medications have been resumed. The patient is currently on 2 L of oxygen by nasal cannula with a pulse ox of 96%. She has been followed up with us in the office regarding her COPD. Baseline 1 is 45% of predicted consistent with severe COPD and the patient had some reversibility post bronchodilation where FEV1 came up to 59% post bronchodilation. She is an ex-smoker. Time with Patient: Greater than 30
[2023-09-17] MEDS: methylPREDNISolone SOD SUCCI 40 MG/ML 1 ML VIAL IV SCH (08:20)
[2023-09-17] MEDS: SYMBICORT 160-4.5 MCG INHALER INHALATION SCH ×2 (08:23→20:02)
[2023-09-17] MEDS: AZITHROMYCIN 500 MG in SODIUM CHLORIDE 0.9% 250 ML IVPB SCH (09:01)
[2023-09-17] MEDS: HYDROcodone/APAP 5-325MG 1 EACH TAB PO PRN (09:04)
--- NOTE | 2023-09-17 12:25 | XR ---
EXAMINATION TYPE: XR chest 1V portable DATE OF EXAM: 09/17/2023 COMPARISON: 09/16/2023 INDICATION: Pneumonia TECHNIQUE: Single frontal view of the chest is obtained. FINDINGS: The heart size is normal. The pulmonary vasculature is normal. The lungs are clear. There may be a small hiatal hernia present. IMPRESSION: 1. No acute pulmonary process. 2. There may be a small hiatal hernia present.
[2023-09-18] MEDS: PANTOPRAZOLE 40 MG TABLET PO SCH (06:47)
[2023-09-18] MEDS: METOPROLOL TARTRATE 25 MG TAB PO SCH (09:30)
[2023-09-18] MEDS: ASPIRIN 81 MG PO SCH (09:30)
[2023-09-18] MEDS: FERROUS SULFATE 325 MG TAB PO SCH (09:30)
[2023-09-18] MEDS: amLODIPine 2.5 MG TAB PO SCH (09:30)
[2023-09-18] MEDS: LOSARTAN 50 MG TAB PO SCH (09:30)
--- NOTE | 2023-09-18 12:21 | P.HPIM ---
History of Present Illness H&P Date: 09/17/23 Chief Complaint: Weakness/altered mental status 77-year-old female to the ER for evaluation. Patient midstate for evaluation of cough congestion fever concern for pneumonia. Patient has been having increasing weakness and was found to be hypoxic with a fever tonight. Family also noticed patient to have increasing or worsening altered mental status. She is currently alert and oriented and answering my questions. She admits to being fatigued and sleeping a lot. She has had a productive cough with green/yellow sputum. Denies hemoptysis. She has been having low-grade fevers at home. Highest recorded temperature on arrival to the emergency room was 99.8 F. She denies any gastrointestinal symptoms such as nausea, vomiting, or diarrhea. No abdominal pain. No known sick contacts or travel. She denies any chest pain, lower extremity swelling, lightheadedness/syncope, heart palpitations. EKG on arrival shows sinus tachycardia without any obvious acute ischemic changes. Recently had a bronchoscopy with BAL done on 07/28/2023. Cultures did not show any bacteria growing. Only isolated Magdalena albicans and glabrata. PCR positive for CMV. Patient brought in by EMS yesterday evening. Over the last several days she has noted to be increasingly lethargic and confused by her family. -- Chest x-ray shows mild hazy bibasilar airspace opacities, could represent developing infectious/inflammatory process. CBC on arrival shows some leukocytosis with a WBC count of 16.1, otherwise unremarkable. BMP unremarkable. Normal saline infusing at 100 MLS per hour. Troponin less than 0.012. NT proBNP 567. Urinalysis not remarkable for UTI. Negative for influenza, RSV, COVID. Review of Systems REVIEW OF SYSTEMS: CONSTITUTIONAL: No fever, no malaise, no fatigue. HEENT: No recent visual problems or hearing problems. Denied any sore throat. CARDIOVASCULAR: No chest pain, orthopnea, PND, no palpitations, no syncope. PULMONARY: No shortness of breath, no cough, no hemoptysis. GASTROINTESTINAL: No diarrhea, no nausea, no vomiting, no abdominal pain. NEUROLOGICAL: No headaches, no weakness, no numbness. HEMATOLOGICAL: Denies any bleeding or petechiae. GENITOURINARY: Denies any burning micturition, frequency, or urgency. MUSCULOSKELETAL/RHEUMATOLOGICAL: Denies any joint pain, swelling, or any muscle pain. ENDOCRINE: Denies any polyuria or polydipsia. The rest of the 14-point review of systems is negative. Past Medical History Past Medical History: COPD, Hypertension Additional Past Medical History / Comment(s): emphysema, hx anemia, increased SOB, wears 2 liters 02 when needed. increased mucous History of Any Multi-Drug Resistant Organisms: None Reported Past Surgical History: Heart Catheterization With Stent Additional Past Surgical History / Comment(s): colonoscopy Past Anesthesia/Blood Transfusion Reactions: No Reported Reaction Date of Last Stent Placement:: 2005 Past Psychological History: No Psychological Hx Reported Smoking Status: Former smoker Past Alcohol Use History: None Reported Past Drug Use History: None Reported - Past Family History Father Family Medical History: Cancer Mother Family Medical History: Hypertension Medications and Allergies Home Medications Medication Instructions Recorded Confirmed Type Aspirin 81 mg PO DAILY 07/23/23 09/16/23 History Budesonide/Formoterol Fumarate 2 puff INHALATION RT-BID 07/23/23 09/16/23 History [Budesonide-Formoterol 160-4.5] Ferrous Sulfate [Feosol] 325 mg PO DAILY 07/23/23 09/16/23 History HYDROcodone/APAP 5-325MG [[place] 1 tab PO TID PRN 07/23/23 09/16/23 History 5-325] Losartan [Cozaar] 100 mg PO DAILY 07/23/23 09/16/23 History amLODIPine [Norvasc] 2.5 mg PO DAILY 07/23/23 09/16/23 History Metoprolol Tartrate [Lopressor] 25 mg PO DAILY 09/16/23 09/16/23 History Omeprazole 20 mg PO DAILY 09/16/23 09/16/23 History Allergies Allergy/AdvReac Type Severity Reaction Status Date / Time ciprofloxacin [From Cipro] Allergy Swelling Verified 09/16/23 17:55 levofloxacin Allergy Swelling Verified 09/16/23 17:55 Penicillins Allergy swelling Verified 09/16/23 17:55 of throat Physical Exam Vitals: Vital Signs Temp Pulse Pulse Resp BP BP Pulse Ox 09/17/23 13:04 89 18 124/57 96 09/17/23 12:25 98.3 F 96 14 149/73 95 09/17/23 10:20 83 17 123/45 98 09/17/23 09:02 99.0 F 77 18 140/60 99 09/17/23 08:24 98 09/17/23 07:45 99.0 F 80 17 152/67 98 09/17/23 06:00 98.9 F 85 20 147/65 99 09/16/23 21:00 98.8 F 95 09/16/23 19:11 99.1 F 96 16 142/58 96 09/16/23 17:50 99.6 F 105 H 16 97 09/16/23 17:07 99.8 F H 107 H 20 152/72 87 L Intake and Output 09/16/23 09/17/23 09/17/23 22:59 06:59 14:59 Other: Weight 72.575 kg GENERAL EXAM: Alert, on 2 L/min nasal cannula. Comfortable in no apparent distress. HEAD: Normocephalic and atraumatic EYES: Normal reaction of pupils, equal size. NECK: No masses, no JVD. CHEST: No chest wall deformity. LUNGS: Equal air entry with no crackles, wheeze, rhonchi or dullness. On 2 L/min nasal cannula. No conversational dyspnea or accessory muscle use while at rest CVS: S1 and S2 normal with no audible murmur, regular rhythm. No extra heart sounds ABDOMEN: No hepatosplenomegaly, active bowel sounds, no guarding or rigidity. SKIN: No rashes. Generalized pallor. CENTRAL NERVOUS SYSTEM: No focal deficits, tone is normal in all 4 extremities. EXTREMITIES: There is no peripheral edema, clubbing, or cyanosis. Peripheral pulses are intact. Results CBC & Chem 7: 09/16/23 17:40 09/16/23 17:40 Labs: Abnormal Lab Results - Last 24 Hours (Table) 09/16/23 09/16/23 09/16/23 Range/Units 17:20 17:40 17:40 WBC 16.1 H (3.8-10.6) k/uL Neutrophils # 13.7 H (1.3-7.7) k/uL Chloride (98-107) mmol/L Carbon Dioxide (22-30) mmol/L Glucose (74-99) mg/dL Procalcitonin 0.10 H (0.02-0.09) ng/mL Urine Ketones 1+ H (Negative) 09/16/23 Range/Units 17:40 WBC (3.8-10.6) k/uL Neutrophils # (1.3-7.7) k/uL Chloride 109 H (98-107) mmol/L Carbon Dioxide 20 L (22-30) mmol/L Glucose 126 H (74-99) mg/dL Procalcitonin (0.02-0.09) ng/mL Urine Ketones (Negative) Assessment and Plan Assessment: 1. Acute exacerbation COPD -Patient has been placed on IV steroids in form of Solu-Medrol 40 mg IV every 6 hours; DuoNeb nebulizer treatments 4 times daily and as needed; continue with O2 per nasal cannula with plans to wean or titrate keeping saturation above 90% 2. Bibasilar pneumonia/CAP History of recent bronchoscopy with BAL done 07/28/2023, BAL cultures did not show any bacteria growing. Only isolated Magdalena albicans and glabrata. PCR positive for CMV. She was given fluconazole to be completed outpatient. States that she was doing well following her bronchoscopy. -- Patient is currently placed on IV Rocephin and azithromycin -Pulmonary service on board 3. Leukocytosis; likely related to community-acquired pneumonia; patient has been placed on IV antibiotics. We will monitor CBC, CRP and procalcitonin 4. Acute on chronic hypoxic respiratory failure; patient was 87% upon arrival; currently on O2 2 L per nasal cannula; patient uses 2 L of O2 at home for worsening shortness of breath as needed 5. Hypertension; losartan 100 mg daily; metoprolol 25 mg daily 6. Gastroesophageal reflux disease; Protonix 40 mg daily DVT prophylaxis; SCDs/subcu Lovenox CODE STATUS; full code
[2023-09-18 13:13] LABS: Basophils % (A) 0 %; Eosinophils # (A) 0.1 k/uL (0-0.7); Eosinophils % (A) 0 %; HCT 34.3 % (34.0-46.0); HGB 10.9 gm/dL (11.4-16.0); Lymphocytes # (A) 1.6 k/uL (1.0-4.8); Lymphocytes % (A) 12 %; MCH 28.2 pg (25.0-35.0); MCHC 31.8 g/dL (31.0-37.0); MCV 88.8 fL (80.0-100.0); Mean Platelet Volume 7.2; Monocytes # (A) 0.3 k/uL (0-1.0); Monocytes % (A) 3 %; Neutrophils % (A) 84 %; Platelet Count 408 k/uL (150-450); RBC 3.86 m/uL (3.80-5.40); RDW 13.8 % (11.5-15.5)
[2023-09-18 13:24] LABS: African American GFR (CKD) >90 (>60 ml/min/1.73 sqM); Anion Gap 8 mmol/L; Blood Urea Nitrogen 24 mg/dL (7-17); Calcium 9.2 mg/dL (8.4-10.2); Carbon Dioxide 18 mmol/L (22-30); Chloride 116 mmol/L (98-107); Glucose 125 mg/dL (74-99); Non-African American GFR(CKD) >90 (>60 ml/min/1.73 sqM); Potassium 4.1 mmol/L (3.5-5.1); Sodium 142 mmol/L (137-145)
--- NOTE | 2023-09-18 14:18 | P.PN ---
Subjective Progress Note Date: 09/18/23 Patient is a 77-year-old white female with past medical history significant for severe chronic obstructive pulmonary disease, chronic supplemental oxygen on 2 L nasal cannula, hypertension, and former tobacco dependence. Her primary care provider is Dr. Tripp. Patient does follow in the pulmonary office with Dr. Norris. She has history of severe COPD with an FEV1 45% of predicted, most recent PFT shows an improvement in her FEV1 59%. She no longer smokes cigarettes, but has a significant smoking history. In June, she was having issues with her COPD in exacerbation. Recently had a bronchoscopy with BAL done on 07/28/2023. Cultures did not show any bacteria growing. Only isolated Magdalena albicans and glabrata. PCR positive for CMV. States that she was doing well following her bronchoscopy. Patient brought in by EMS yesterday evening. Over the last several days she has noted to be increasingly lethargic and confused by her family. She is currently alert and oriented and answering my questions. She admits to being fatigued and sleeping a lot. She has had a productive cough with green/yellow sputum. Denies hemoptysis. She has been having low-grade fevers at home. Highest recorded temperature on arrival to the emergency room was 99.8 F. She denies any gastrointestinal symptoms such as nausea, vomiting, or diarrhea. No abdominal pain. No known sick contacts or travel. She denies any chest pain, lower extremity swelling, lightheadedness/syncope, heart palpitations. EKG on arrival shows sinus tachycardia without any obvious acute ischemic changes. Chest x-ray shows mild hazy bibasilar airspace opacities, could represent developing infectious/inflammatory process. Was covered on empiric antibiotics in the emergency room. CBC on arrival shows some leukocytosis with a WBC count of 16.1, otherwise unremarkable. BMP unremarkable. Normal saline infusing at 100 MLS per hour. Troponin less than 0.012. NT proBNP 567. Urinalysis not remarkable for UTI. Negative for influenza, RSV, COVID. Appears nontoxic. She is currently on 2 L/min nasal cannula, in no acute distress. She is chronically on this flow rate. Vital signs are stable. 09/18/2023, the patient is being seen for a follow-up. Hospitalized for an acute Exacerbation. She is currently on bronchodilators and steroids. Feeling less short of breath compared to yesterday. No chest pain. No altered mentation. No significant sputum production. She is on Zithromax and IV Rocephin as empiri c antibiotic coverage. She remains on IV Solu-Medrol 40 mg every 6 hours. She is also on DuoNeb updrafts. IV fluids are in the order of 40 cc an hour. Labs from today shows a white cell count of 13 with a hemoglobin 10.9 and a platelet count of 408. BUN is 24 with a creatinine of 0.49 and sodium levels at 142. Procalcitonin level is at 0.1. Objective - Vital Signs Vital signs: Vital Signs Temp 98.8 F 09/18/23 07:31 Pulse 95 09/18/23 07:31 Resp 17 09/18/23 07:31 BP 155/63 09/18/23 07:31 Pulse Ox 97 09/18/23 07:31 FiO2 Intake & Output 09/17/23 09/18/23 09/18/23 18:59 06:59 18:59 Weight 72.575 kg Other: Voiding Method Bedside Commode Bedside Commode Bedside Commode # Voids 1 1 # Bowel Movements 1 - Exam GENERAL EXAM: Alert, 77-year-old white female, on 2 L/min nasal cannula. Comfortable in no apparent distress. Nurses are currently working on establishing IV access. HEAD: Normocephalic and atraumatic EYES: Normal reaction of pupils, equal size. NOSE: Clear with pink turbinates. THROAT: No erythema or exudates. NECK: No masses, no JVD. CHEST: No chest wall deformity. LUNGS: Equal air entry with no crackles, wheeze, rhonchi or dullness. On 2 L/min nasal cannula. No conversational dyspnea or accessory muscle use while at rest CVS: S1 and S2 normal with no audible murmur, regular rhythm. No extra heart sounds ABDOMEN: No hepatosplenomegaly, active bowel sounds, no guarding or rigidity. SPINE: No scoliosis or deformity SKIN: No rashes. Generalized pallor. CENTRAL NERVOUS SYSTEM: No focal deficits, tone is normal in all 4 extremities. EXTREMITIES: There is no peripheral edema, clubbing, or cyanosis. Peripheral pulses are intact. - Labs CBC & Chem 7: 09/18/23 12:57 09/18/23 12:57 Labs: Microbiology - Last 24 Hours (Table) 09/17/23 03:20 Gram Stain - Preliminary Sputum 09/16/23 22:00 Blood Culture - Preliminary Blood 09/16/23 21:45 Blood Culture - Preliminary Blood Assessment and Plan Assessment: acute COPD exacerbation, possible developing bibasilar pneumonia, community- acquired. Chest x-ray shows mild hazy bibasilar opacities, could represent developing infectious/inflammatory process. Negative for influenza, RSV, COVID. Clinically improving and the patient seems to be less short of breath compared to yesterday. Acute on chronic dyspnea, secondary to above Acute febrile illness Acute leukocytosis History of severe chronic obstructive pulmonary disease Chronic hypoxemic respiratory failure, secondary to above History of recent bronchoscopy with BAL done 07/28/2023, BAL cultures did not show any bacteria growing. Only isolated Magdalena albicans and glabrata. PCR positive for CMV. She was given fluconazole to be completed outpatient. States t hat she was doing well following her bronchoscopy. Hypertension History of former tobacco dependence Plan: Patient is clinically improving and will continue same treatment for now. Follow-up chest x-ray is consistent with COPD Currently on chronic 2 L/min nasal cannula Start patient on a combination of bronchodilators, Symbicort Hailer, and IV Solu-Medrol 4Plex negative for influenza, RSV, COVID Obtain sputum culture if possible. Blood cultures pending. Procalcitonin level is mildly elevated No signs of CO2 narcosis. Will continue to follow She has been followed up with us in the office regarding her COPD. Baseline 1 is 45% of predicted consistent with severe COPD and the patient had some reversibility post bronchodilation where FEV1 came up to 59% post bronchodilation. She is an ex-smoker.
[2023-09-18] MEDS: methylPREDNISolone SOD SUCCI 40 MG/ML 1 ML VIAL IV SCH (14:59)
--- NOTE | 2023-09-18 17:57 | P.PN ---
Subjective Progress Note Date: 09/18/23 77-year-old female to the ER for evaluation. Patient midstate for evaluation of cough congestion fever concern for pneumonia. Patient has been having increasing weakness and was found to be hypoxic with a fever tonight. Family also noticed patient to have increasing or worsening altered mental status. She is currently alert and oriented and answering my questions. She admits to being fatigued and sleeping a lot. She has had a productive cough with green/yellow sputum. Denies hemoptysis. She has been having low-grade fevers at home. Highest recorded temperature on arrival to the emergency room was 99.8 F. She denies any gastrointestinal symptoms such as nausea, vomiting, or diarrhea. No abdominal pain. No known sick contacts or travel. She denies any chest pain, lower extremity swelling, lightheadedness/syncope, heart palpitations. EKG on arrival shows sinus tachycardia without any obvious acute ischemic changes. Recently had a bronchoscopy with BAL done on 07/28/2023. Cultures did not show any bacteria growing. Only isolated Magdalena albicans and glabrata. PCR positive for CMV. Patient brought in by EMS yesterday evening. Over the last several days she has noted to be increasingly lethargic and confused by her family. -- Chest x-ray shows mild hazy bibasilar airspace opacities, could represent developing infectious/inflammatory process. CBC on arrival shows some leukocytosis with a WBC count of 16.1, otherwise unremarkable. BMP unremarkable. Normal saline infusing at 100 MLS per hour. Troponin less than 0.012. NT proBNP 567. Urinalysis not remarkable for UTI. Negative for influenza, RSV, COVID. Objective - Vital Signs Vital signs: Vital Signs Temp 98.8 F 09/18/23 07:31 Pulse 95 09/18/23 07:31 Resp 17 09/18/23 07:31 BP 155/63 09/18/23 07:31 Pulse Ox 97 09/18/23 07:31 FiO2 Intake & Output 09/17/23 09/18/23 09/18/23 18:59 06:59 18:59 Weight 72.575 kg Other: Voiding Method Bedside Commode Bedside Commode Bedside Commode # Voids 1 1 # Bowel Movements 1 - Exam GENERAL EXAM: Alert, on 2 L/min nasal cannula. Comfortable in no apparent distress. HEAD: Normocephalic and atraumatic EYES: Normal reaction of pupils, equal size. NECK: No masses, no JVD. CHEST: No chest wall deformity. LUNGS: Equal air entry with no crackles, wheeze, rhonchi or dullness. On 2 L/min nasal cannula. No conversational dyspnea or accessory muscle use while at rest CVS: S1 and S2 normal with no audible murmur, regular rhythm. No extra heart sounds ABDOMEN: No hepatosplenomegaly, active bowel sounds, no guarding or rigidity. SKIN: No rashes. Generalized pallor. CENTRAL NERVOUS SYSTEM: No focal deficits, tone is normal in all 4 extremities. EXTREMITIES: There is no peripheral edema, clubbing, or cyanosis. Peripheral pulses are intact. - Labs CBC & Chem 7: 09/18/23 12:57 09/18/23 12:57 Labs: Microbiology - Last 24 Hours (Table) 09/17/23 03:20 Gram Stain - Preliminary Sputum 09/16/23 22:00 Blood Culture - Preliminary Blood 09/16/23 21:45 Blood Culture - Preliminary Blood Assessment and Plan Assessment: 1. Acute exacerbation COPD -Patient has been placed on IV steroids in form of Solu-Medrol 40 mg IV every 6 hours; DuoNeb nebulizer treatments 4 times daily and as needed; continue with O2 per nasal cannula with plans to wean or titrate keeping saturation above 90% 2. Bibasilar pneumonia/CAP History of recent bronchoscopy with BAL done 07/28/2023, BAL cultures did not show any bacteria growing. Only isolated Magdalena albicans and glabrata. PCR positive for CMV. She was given fluconazole to be completed outpatient. States that she was doing well following her bronchoscopy. -- Patient is currently placed on IV Rocephin and azithromycin -Pulmonary service on board 3. Leukocytosis; likely related to community-acquired pneumonia; patient has been placed on IV antibiotics. We will monitor CBC, CRP and procalcitonin 4. Acute on chronic hypoxic respiratory failure; patient was 87% upon arrival; currently on O2 2 L per nasal cannula; patient uses 2 L of O2 at home for worsening shortness of breath as needed 5. Hypertension; losartan 100 mg daily; metoprolol 25 mg daily 6. Gastroesophageal reflux disease; Protonix 40 mg daily DVT prophylaxis; SCDs/subcu Lovenox CODE STATUS; full code
[2023-09-19 09:12] VITALS: RESP 19; TEMP 97.9
[2023-09-19 09:35] LABS: Basophils # (A) 0.01 X 10*3/uL (0.00-0.10); Basophils % (A) 0.1 %; Eosinophils # (A) 0 X 10*3/uL (0.04-0.35); Eosinophils % (A) 0 %; HCT 31.7 % (37.2-46.3); HGB 10.2 g/dL (12.0-15.0); Lymphocytes # (A) 1.76 X 10*3/uL (0.90-5.00); Lymphocytes % (A) 13.5 %; MCH 28.2 pg (27.0-32.0); MCHC 32.2 g/dL (32.0-37.0); MCV 87.6 FL (80.0-97.0); Mean Platelet Volume 9.7 FL (9.5-12.2); Monocytes # (A) 0.21 X 10*3/uL (0.20-1.00); Monocytes % (A) 1.6 %; NRBC Per 100 WBC 0 X 10*3/uL (0.00-0.01); Neutrophils # (A) 10.98 X 10*3/uL (1.80-7.70); Neutrophils % (A) 84.3 %; Platelet Count 398 X 10*3/uL (140-440); RBC 3.62 X 10*6/uL (4.10-5.20); RDW 13.6 % (11.5-14.5); WBC 13.03 X 10*3/uL (4.50-10.00)
[2023-09-19 10:39] LABS: BUN/Creat Ratio 46.33 Ratio (12.00-20.00); Blood Urea Nitrogen 27.8 mg/dL (9.0-27.0); Calcium 9.3 mg/dL (8.7-10.3); Carbon Dioxide 18.4 mmol/L (21.6-31.8); Chloride 113 mmol/L (96-109); Glucose 136 mg/dL (70-110); Potassium 4.3 mmol/L (3.5-5.5); Sodium 144 mmol/L (135-145)
--- NOTE | 2023-09-19 14:58 | P.PN ---
Subjective Progress Note Date: 09/19/23 Patient is a 77-year-old white female with past medical history significant for severe chronic obstructive pulmonary disease, chronic supplemental oxygen on 2 L nasal cannula, hypertension, and former tobacco dependence. Her primary care provider is Dr. Tripp. Patient does follow in the pulmonary office with Dr. Norris. She has history of severe COPD with an FEV1 45% of predicted, most recent PFT shows an improvement in her FEV1 59%. She no longer smokes cigarettes, but has a significant smoking history. In June, she was having issues with her COPD in exacerbation. Recently had a bronchoscopy with BAL done on 07/28/2023. Cultures did not show any bacteria growing. Only isolated Magdalena albicans and glabrata. PCR positive for CMV. States that she was doing well following her bronchoscopy. Patient brought in by EMS yesterday evening. Over the last several days she has noted to be increasingly lethargic and confused by her family. She is currently alert and oriented and answering my questions. She admits to being fatigued and sleeping a lot. She has had a productive cough with green/yellow sputum. Denies hemoptysis. She has been having low-grade fevers at home. Highest recorded temperature on arrival to the emergency room was 99.8 F. She denies any gastrointestinal symptoms such as nausea, vomiting, or diarrhea. No abdominal pain. No known sick contacts or travel. She denies any chest pain, lower extremity swelling, lightheadedness/syncope, heart palpitations. EKG on arrival shows sinus tachycardia without any obvious acute ischemic changes. Chest x-ray shows mild hazy bibasilar airspace opacities, could represent developing infectious/inflammatory process. Was covered on empiric antibiotics in the emergency room. CBC on arrival shows some leukocytosis with a WBC count of 16.1, otherwise unremarkable. BMP unremarkable. Normal saline infusing at 100 MLS per hour. Troponin less than 0.012. NT proBNP 567. Urinalysis not remarkable for UTI. Negative for influenza, RSV, COVID. Appears nontoxic. She is currently on 2 L/min nasal cannula, in no acute distress. She is chronically on this flow rate. Vital signs are stable. 09/18/2023, the patient is being seen for a follow-up. Hospitalized for an acute Exacerbation. She is currently on bronchodilators and steroids. Feeling less short of breath compared to yesterday. No chest pain. No altered mentation. No significant sputum production. She is on Zithromax and IV Rocephin as empiri c antibiotic coverage. She remains on IV Solu-Medrol 40 mg every 6 hours. She is also on DuoNeb updrafts. IV fluids are in the order of 40 cc an hour. Labs from today shows a white cell count of 13 with a hemoglobin 10.9 and a platelet count of 408. BUN is 24 with a creatinine of 0.49 and sodium levels at 142. Procalcitonin level is at 0.1. 09/19/2023, the patient is being seen for a follow-up. The patient is being treated for acute COPD exacerbation. Much improved. Less short of breath and wheezy. No new complaints. She feels that her overall respiratory status is back to her baseline. She is on 2 L with a pulse ox of 97%. She has home O2. White cell count is 13, hemoglobin 10 and platelet count of 398. BUN is at 27 with a creatinine of 0.6 and a sodium levels at 144. Objective - Vital Signs Vital signs: Vital Signs Temp 97.9 F 09/19/23 07:06 Pulse 80 09/19/23 07:06 Resp 19 09/19/23 07:06 BP 147/67 09/19/23 07:06 Pulse Ox 97 09/19/23 07:06 FiO2 Intake & Output 09/18/23 09/19/23 09/19/23 18:59 06:59 18:59 Other: Voiding Method Bedside Commode Toilet Toilet # Voids 4 2 1 - Exam GENERAL EXAM: Alert, 77-year-old white female, on 2 L/min nasal cannula. Comfortable in no apparent distress. Nurses are currently working on establishing IV access. HEAD: Normocephalic and atraumatic EYES: Normal reaction of pupils, equal size. NOSE: Clear with pink turbinates. THROAT: No erythema or exudates. NECK: No masses, no JVD. CHEST: No chest wall deformity. LUNGS: Equal air entry with no crackles, wheeze, rhonchi or dullness. On 2 L/min nasal cannula. No conversational dyspnea or accessory muscle use while at rest CVS: S1 and S2 normal with no audible murmur, regular rhythm. No extra heart sounds ABDOMEN: No hepatosplenomegaly, active bowel sounds, no guarding or rigidity. SPINE: No scoliosis or deformity SKIN: No rashes. Generalized pallor. CENTRAL NERVOUS SYSTEM: No focal deficits, tone is normal in all 4 extremities. EXTREMITIES: There is no peripheral edema, clubbing, or cyanosis. Peripheral pulses are intact. - Labs CBC & Chem 7: 09/19/23 06:26 09/19/23 06:26 Labs: Abnormal Lab Results - Last 24 Hours (Table) 09/18/23 09/18/23 09/19/23 Range/Units 12:57 12:57 06:26 WBC 13.0 H 13.03 H (3.8-10.6) k/uL RBC 3.62 L (4.10-5.20) X 10*6/uL Hgb 10.9 L 10.2 L (11.4-16.0) gm/dL Hct 31.7 L (37.2-46.3) % Immature Gran # 0.07 H (0.00-0.04) X 10*3/uL Neutrophils # 11.0 H 10.98 H (1.3-7.7) k/uL Eosinophils # 0 L (0.04-0.35) X 10*3/uL Chloride 116 H (98-107) mmol/L Carbon Dioxide 18 L (22-30) mmol/L Anion Gap (4.00-12.00) mmol/L BUN 24 H (7-17) mg/dL Creatinine 0.49 L (0.52-1.04) mg/dL BUN/Creatinine Ratio (12.00-20.00) Ratio Glucose 125 H (74-99) mg/dL 09/19/23 Range/Units 06:26 WBC (3.8-10.6) k/uL RBC (4.10-5.20) X 10*6/uL Hgb (11.4-16.0) gm/dL Hct (37.2-46.3) % Immature Gran # (0.00-0.04) X 10*3/uL Neutrophils # (1.3-7.7) k/uL Eosinophils # (0.04-0.35) X 10*3/uL Chloride 113 H (98-107) mmol/L Carbon Dioxide 18.4 L (22-30) mmol/L Anion Gap 12.60 H (4.00-12.00) mmol/L BUN 27.8 H (7-17) mg/dL Creatinine (0.52-1.04) mg/dL BUN/Creatinine Ratio 46.33 H (12.00-20.00) Ratio Glucose 136 H (74-99) mg/dL Microbiology - Last 24 Hours (Table) 09/17/23 03:20 Gram Stain - Final Sputum Sputum Culture - Final 09/16/23 22:00 Blood Culture - Preliminary Blood 09/16/23 21:45 Blood Culture - Preliminary Blood Assessment and Plan Assessment: acute COPD exacerbation, possible developing bibasilar pneumonia, community- acquired. Chest x-ray shows mild hazy bibasilar opacities, could represent developing infectious/inflammatory process. Negative for influenza, RSV, COVID. Clinically improved and respiratory status is back to baseline Acute on chronic dyspnea, secondary to above Acute febrile illness Acute leukocytosis History of severe chronic obstructive pulmonary disease Chronic hypoxemic respiratory failure, secondary to above History of recent bronchoscopy with BAL done 07/28/2023, BAL cultures did not show any bacteria growing. Only isolated Magdalena albicans and glabrata. PCR positive for CMV. She was given fluconazole to be completed outpatient. States that she was doing well following her bronchoscopy. Hypertension History of former tobacco dependence Plan: Patient is clinically improved and back to her baseline the patient can be discharged home on a prednisone burst taper. Currently on chronic 2 L/min nasal cannula Continue Symbicort on outpatient basis Usha marshall on outpatient basis Follow-up in the clinic.
[2023-09-19 16:03] VITALS: BP 157/67; PULSE 84
--- NOTE | 2023-09-22 12:43 | CDI ---
Documentation Clarification Form Date: 09/22/23 From: Rita Pack Admit Date: 09/16/2023 08:42:00 PM Patient Name: Linda Steve Visit Number: [id number] Discharge Date: 09/19/2023 03:55:00 PM ATTENTION: The Clinical Documentation Specialists (CDI) and [facility] Coding Staff appreciate your assistance in clarifying documentation. Please respond to the clarification below the line at the bottom and electronically sign. The CDI & [facility] Coding staff will review the response and follow-up if needed. Please note: Queries are made part of the Legal Health Record. If you have any questions, please contact the author of this message via ITS. Dr. Kiet Rodas, Your patient has the documented symptom of Altered Mental Status in the ED Note and H&P. Additional clarification regarding the etiology/cause of this symptom is requested. History/Risk Factors: pneumonia, acute on chronic hypoxic respiratory failure, COPD w acute exacerbation, emphysema, HTN, GERD, hiatal hernia Clinical Indicators: Weakness/altered mental status Labs: WBC 16.1, Neutrophils 13.7, Procalitonin 0.10 Treatment: IV antibitoics, Solu-Medrol, IV fluids Please clarify the etiology of the symptom of Altered Mental Status: [ @@ ] [Insert type of encephalopathy] Encephalopathy due to [insert cause of encephalopathy] [ ] Delirium (specify cause): [ ] Other condition (please specify) [ ] Unable to determine Toxic metabolic encephalopathy MTDD
== END 2023-09-19 15:55 | disposition home or self-care (01) | DRG 193 ==
LOC: EC 16:54 → 4SSUR 20:42
PROVIDERS: ADMIT Hospitalist; ATTEND Hospitalist
DX: J18.9 Pneumonia, unspecified organism (principal); G92.8 Other toxic encephalopathy; J96.21 Acute and chronic respiratory failure with hypoxia; J44.0 Chronic obstructive pulmonary disease with (acute) lower respiratory infection; J44.1 Chronic obstructive pulmonary disease with (acute) exacerbation; J43.9 Emphysema, unspecified; I10 Essential (primary) hypertension; K21.9 Gastro-esophageal reflux disease without esophagitis; K44.9 Diaphragmatic hernia without obstruction or gangrene; Z79.82 Long term (current) use of aspirin; Z79.51 Long term (current) use of inhaled steroids; Z79.899 Other long term (current) drug therapy; Z87.891 Personal history of nicotine dependence; Z95.5 Presence of coronary angioplasty implant and graft; Z88.1 Allergy status to other antibiotic agents; Z88.0 Allergy status to penicillin
CPT/HCPCS: 36415; 71045; 71046; 80048; 80053; 81003; 83605; 83735; 83880; 84100; 84145; 84484; 85025; 85610; 85730; 87040; 87070; 87205; 87449; 87636; 93005; 94640; 94760; 96361; 96365; 96366; 96367; 96375; 99291